=== PATIENT | male | born 1960 | race Caucasian/White ===

== ENCOUNTER 2017-01-27 10:04 | Emergency (ER) | payer OTHER ==
[~2017-01-27] VITALS: Ht 177.8 cm; Wt 57.9 kg
[2017-01-27] MEDS ORDERED: TOBRAMYCIN SULFA5 ML BOTH EYES (11:23)
[2017-01-27 11:47] VITALS: BP 148/83
== END 2017-01-27 11:47 | disposition home or self-care (01) ==
LOC: EME 10:04
DX: H10.9 Unspecified conjunctivitis (principal); G89.29 Other chronic pain; Z79.891 Long term (current) use of opiate analgesic; F17.200 Nicotine dependence, unspecified, uncomplicated
CPT/HCPCS: 99281; 99283

== ENCOUNTER 2018-04-14 14:55 | Emergency (ER) | payer OTHER ==
[~2018-04-14] VITALS: Ht 177.8 cm; Wt 49.2 kg
[~2018-04-14 14:55] MED LIST: TOBRAMYCIN SULFA5 ML BOTH EYES
[2018-04-14 15:13] VITALS: BP 123/62
[2018-04-14 16:00] LABS: HEMATOCRIT 48.4 % (38.0-50.0); HEMOGLOBIN 16.5 G/DL (12.5-16.6); MCH 31.3 PG (29.0-34.0); MCHC 34.1 G/DL (30.0-36.0); MCV 91.7 FL (86-99); PLATELET COUNT 191 K/uL (156-360); RBC DIS.WIDTH-CV 13.7 % (11.8-14.6); RBC DIS.WIDTH-SD 46.6 % (39-53); RED BLOOD COUNT 5.28 M/uL (4.00-5.50); WHITE BLOOD COUNT 7.3 K/uL (4.1-10.2)
[2018-04-14 16:07] LABS: CHLORIDE 102 mEq/L (99-109); POTASSIUM 4.2 mEq/L (3.7-5.4); SODIUM 140 mEq/L (136-147)
[2018-04-14 16:08] LABS: GLUCOSE 124 mg/dL (70-99)
[2018-04-14 16:12] LABS: GFR ESTIMATE (CALCULATED) > 59 mL/min/ (58.99-99999)
[2018-04-14 16:13] LABS: UREA NITROGEN (BUN) 15 mg/dL (9-23)
[2018-04-14 16:20] LABS: TROP-I INTERPRETATION NEGATIVE; TROPONIN-I < 0.01 ng/mL (0.0-0.30)
== END 2018-04-14 18:18 | disposition left against medical advice (07) ==
LOC: EXP 14:55 → EME 14:55 → EXP 18:18
DX: R07.9 Chest pain, unspecified (principal); R20.2 Paresthesia of skin; Z53.21 Procedure and treatment not carried out due to patient leaving prior to being seen by health care provider
CPT/HCPCS: 71046; 80048; 84484; 85027; 93005